=== PATIENT | male | born 1950 | race Caucasian/White ===

== ENCOUNTER 2022-07-01 00:42 | Outpatient (CLI) | payer MEDICARE, OTHER, SELFPAY ==
--- NOTE | 2022-07-01 08:19 | DI.US_ITS ---
Exam(s) US ABDOMEN EXAM: US ABDOMEN CLINICAL HISTORY: BILIARY ACUTE PANCREATITIS,K85.10,ASSESS FOR GALLSTONES,SLUDGE TECHNIQUE: Ultrasound abdomen performed using standard protocol. COMPARISON: No exams were available for comparison FINDINGS: ABDOMINAL AORTA AND IVC: Visualized portions normal caliber. PANCREAS: Normal where visualized. LIVER: The liver is echogenic. It measures 16.9 cm. Hepatopedal flow in the Portal Vein. GALLBLADDER:No evidence of cholelithiasis. No evidence of wall thickening. No pericholecystic fluid i dentified. BILIARY SYSTEM: Common bile duct measures < 7 mm. No intrahepatic biliary ductal dilation. CANTU'S SIGN: Negative. KIDNEYS: Kidneys are symmetric in size. There is a 0.5 cm echogenic focus in the midpole of the left kidney. This may represent a nonobstructing stone. No evidence of hydronephrosis. There is a 1 cm s imple cyst in the right kidney. No follow-up is recommended. SPLEEN: Not enlarged. Note is made of a 2.0 x 1.8 cm accessory spleen. ASCITES: None seen. IMPRESSION: 1. No evidence of cholelithiasis or biliary ductal dilatation. 2. Hepatic steatosis. DATA REPOSITORY:
--- NOTE | 2022-07-01 08:30 | DI.NM_ITS ---
Exam(s) NM HEPATOBILIARY CCK GRP EXAM: NM HEPATOBILIARY CCK GRP CLINICAL HISTORY: EPIGASTRIC PAIJN, R10.13, ? BILIARY DYSKINESIA. TECHNIQUE: Injected dose: 4.5 mCi Tc-99 mebrofenin Initial dynamic images: 60 minutes Post-Gallbladder fillin.4 mcg CCK according to protocol. Addition images: 20 minute dynamic during CCK administration. COMPARISON: US US ABDOMEN from 07/01/2022 FINDINGS: Normal hepatic transit time. Prompt excretion into the small bowel. The gallbladder promptly fills The gallbladder ejection fraction is 31 percent. (Normal greater than 40). IMPRESSION: 1. Decreased gallbladder ejection fraction. This can be seen with gallbladder dyskinesis. SN guidelines: Gallbladder visualization should be present by 3 hours. Delayed thldfge-qq-mejka graff sit beyond 60 min raises the suspicion for partial common bile duct (CBD) obstruction. Gallbladder ejection fraction <35% has a good correlation with acalculous disease (i.e., chronic acal culous cholecystitis, cystic duct syndrome, sphincter of Oddi disease).
[2022-07-01] MEDS: Sincalide 5 MCG VIAL 1.4 MCG IJ (11:41)
[2022-07-01] MEDS: Water,Injection,Sterile 10 ML VIAL IJ (11:42)
== END 2022-07-01 01:02 ==
LOC: DI 00:43
PROVIDERS: PCP Family Medicine; Visit Provider Student in an Organized Health Care Education/Training Program
DX: K85.10 Biliary acute pancreatitis without necrosis or infection (principal); R10.13 Epigastric pain
CPT/HCPCS: 78227; J2805; 76700

== ENCOUNTER 2023-02-24 04:27 | Emergency (ER) | payer MEDICARE, OTHER, SELFPAY ==
[2023-02-24] VITALS (17 sets, daily range): BP systolic 141–173; BP diastolic 68–86; PULSE 66–77; RESP 3–25; TEMP 36.5–36.8; O2SAT 94–98
--- NOTE | 2023-02-24 04:15 | RT.EKG_ITS ---
APPROVED REPORT Exam: Resting ECG Reason for Exam: chest pain Patient Location: E HR:75 bpm ECG Measurements Heart Rate 75 AXIS OR 159 P 51 QRSd 95 QRS 46 QT 382 T 28 QTc 426 Conclusion Sinus rhythm...normal P axis, V-rate 60- 99 Physician: no stemi
--- NOTE | 2023-02-24 04:30 | DI.RAD_ITS ---
Exam(s) XR PORTABLE CHEST AP EXAM: XR PORTABLE CHEST AP CLINICAL HISTORY: left chest/shoulder pain. TECHNIQUE: 2D digital imaging was performed. COMPARISON: CR CHEST 2 VIEWS PA,LAT from 05/12/2017 FINDINGS: Single AP portable view. Heart size is upper normal. The mediastinum is not widened. Lungs are clear. No infiltrates nor obvious pleural effusions. IMPRESSION: No acute pulmonary findings on this single AP portable view of the chest. DATA REPOSITORY: RADIATION DOSE DELIVERED:
--- NOTE | 2023-02-24 04:45 | ED.GENADUL_ITS ---
Discharge Plan Disposition Patient Disposition: Home Condition: Good Discharge Details Clinical Impression: Thoracic outlet syndrome, Tingling of left upper extremity Primary Care Provider: Juan Jose Weinstein ED Provider: Brijesh Alvarez Home Meds and New Rx's Prescriptions: No Action meloxicam PO carvedilol 12.5 mg tablet 12.5 mg PO BID Rx Instructions: must administer with a meal/food fexofenadine 180 mg tablet 180 mg PO DAILY azelastine-fluticasone 137-50 mcg/spray spray,non-aerosol 1 spray intranasal QHS Rx Instructions: administer into each nostril Systane Balance 0.6 % drops 1 drp ophthalmic (eye) DAILY Vyzulta 0.024 % drops 1 drp ophthalmic (eye) QPM Rocklatan 0.02-0.005 % drops 1 drp ophthalmic (eye) QPM gentamicin 0.3 % drops 1 drp ophthalmic (eye) Q4H diltiazem HCl [Taztia XT] 300 MG capsule,extended release 24 hr 300 mg PO DAILY montelukast [Singulair] 10 MG tablet 10 mg PO DAILY hydroxyzine HCl 25 MG tablet 25 mg PO DAILY fluticasone propionate [Flovent HFA] 12 GM HFA aerosol inhaler 220 mcg Inhalation BID epinephrine [EpiPen 2-Angelito] 0.3 MG/0.3 ML auto-injector 0.3 mg IM ONCE albuterol sulfate [ProAir HFA] 8.5 GM HFA aerosol inhaler 2 puff Inhalation Q6H PRN omeprazole 20 MG capsule,delayed release(DR/EC) 20 mg PO DAILY nitroglycerin [Nitrostat] 0.4 MG tablet, sublingual 0.4 mg Sublingual PRN PRN aspirin [Aspirin Low-Strength] 81 MG tablet,chewable 81 mg PO DAILY metronidazole 500 mg tablet Patient Comments: TAKE ONE TABLET BY MOUTH THREE TIMES A DAY FOR 14 DAYS Discharge Instructions Instructions: Thoracic Outlet Syndrome (ED) Additional Instructions: At this time your cardiac workup shows no evidence of heart attack, EKG abnormality or other significant concern. I am concerned that your symptoms may be secondary to thoracic outlet syndrome. Please perform the stretches as we discussed. Please use a heating pad on that side of your neck as needed. If you notice any worsening of your symptoms, or any new symptoms such as vomiting, diarrhea, fever, chills, shortness of breath, chest pain, numbness, weakness, or fainting , please return immediately to the emergency department for reevaluation. Please follow up with your primary care provider as soon as possible for reassessment and reevaluation. As always, it was a pleasure participating in your medical care today. 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 Patient states that he woke up in the middle of the night and had a sharp left shoulder pain which she describes as a numbness that went from his left shoulder all the way down his arm. No chest pain, pleuritic chest pain, or shortness of breath. He got up, and was concerned for his symptoms and came to the ER for further evaluation. He denies any fever or chills. He denies any vomiting or diarrhea. He denies any current pain at this time. He states that usually once per month this will occur, but this was slightly worse than normal. He denies any tearing or ripping sensation. He denies any other complaints at this time. No other modifying factors. Exam demonstrates well-appearing male, no pulse asymmetry. No other abnormalities on exam. Symptoms appear inconsistent with PE or dissection. Low likelihood for ACS. Highest component on the differential is for mild thoracic outlet syndrome causing temporary neuralgia. When asked how the patient sleeps, he sleeps with his left arm draped tightly across to his chest which would correlate well with a brachial plexus irritation and his symptoms. Out of an abundance of precaution that we will evaluate for concerning etiologies, get a chest x-ray, troponins, monitor closely and reassess. EKG is benign with no evidence of STEMI. 7:17 AM Laboratory workup is normal, EKG benign. Troponin normal. Chest x-ray negative for acute process. Patient remains completely asymptomatic. Symptoms notably clinically inconsistent with ACS, PE, dissection, pneumothorax or other acute life-threatening etiology. Symptoms appear consistent with mild thoracic outlet syndrome. Discussed stretching exercises, heating pads, and mechanism/sleep changes for resolution. Symptoms inconsistent with stroke. Discussed red flags which to return. I have extensively reviewed the treatment plan and discharge instructions with the patient and their family. I have addressed all patient concerns at this time. The patient and family was made aware of what symptoms to monitor for that would warrant a return to the emergency department. Discussed the plan with the patient and family, they demonstrate verbal understanding and agreement with our assessment and plan at this time. The documentation in this chart was dictated using [employer] dictation software. Please excuse any dictation errors. FINDINGS: Lungs: No pulmonary vascular congestion, pulmonary edema or pneumonia. Pleural spaces: No pleural effusion or pneumothorax. Heart/Mediastinum: The cardiac silhouette is not enlarged. The mediastinal contours are normal. Bones/joints: No acute osseous abnormality. IMPRESSION: No acute finding. Thank you for allowing us to participate in the care of your patient. Dictated and Authenticated by: aMnuel Roberts MD 02/24/2023 7:01 AM Eastern Time ([place] & [place]) HPI General Date/Time Provider Initiated Documentation: 02/24/23 04:31 . 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 Patient states that he woke up in the middle of the night and had a sharp left shoulder pain which she describes as a numbness that went from his left shoulder all the way down his arm. No chest pain, pleuritic chest pain, or shortness of breath. He got up, and was concerned for his symptoms and came to the ER for further evaluation. He denies any fever or chills. He denies any vomiting or diarrhea. He denies any current pain at this time. He states that usually once per month this will occur, but this was slightly worse than normal. He denies any tearing or ripping sensation. He denies any other complaints at this time. No other modifying factors. Related Data Home Medications Medication Instructions Recorded Confirmed omeprazole 20 mg capsule,delayed 20 mg PO DAILY 08/01/12 02/24/23 release aspirin 81 mg chewable tablet 81 mg PO DAILY 09/28/15 02/24/23 (Aspirin Low-Strength) nitroglycerin 0.4 mg sublingual 0.4 mg sublingual PRN PRN 09/28/15 03/26/22 tablet (Nitrostat) EpiPen 2-Angelito 0.3 mg/0.3 mL 0.3 mg IM ONCE 01/18/17 03/26/22 injection, auto-injector (epinephrine) Flovent HFA 220 mcg/actuation 220 mcg inhalation BID 01/18/17 02/24/23 aerosol inhaler (fluticasone propionate) ProAir HFA 90 mcg/actuation 2 puff inhalation Q6H PRN 01/18/17 03/26/22 aerosol inhaler (albuterol sulfate) Singulair 10 mg tablet 10 mg PO DAILY 01/18/17 02/24/23 (montelukast) Taztia XT 300 mg capsule,extended 300 mg PO DAILY 01/18/17 02/24/23 release (diltiazem HCl) hydroxyzine HCl 25 mg tablet 25 mg PO DAILY 01/18/17 02/24/23 azelastine-fluticasone 137 mcg-50 1 spray intranasal QHS 02/12/22 03/26/22 mcg/spray nasal spray carvedilol 12.5 mg tablet 12.5 mg PO BID 02/12/22 02/24/23 fexofenadine 180 mg tablet 180 mg PO DAILY 02/12/22 02/24/23 gentamicin 0.3 % eye drops 1 drp ophthalmic (eye) Q4H 02/12/22 02/24/23 latanoprostene bunod 0.024 % eye 1 drp ophthalmic (eye) QPM 02/12/22 02/24/23 drops (Vyzulta) netarsudil 0.02 %-latanoprost 1 drp ophthalmic (eye) QPM 02/12/22 02/24/23 0.005 % eye drops (Rocklatan) propylene glycol 0.6 % eye drops 1 drp ophthalmic (eye) DAILY 02/12/22 02/24/23 (Systane Balance) meloxicam PO 03/26/22 metronidazole 500 mg tablet mg 02/24/23 Allergies Allergy/AdvReac Type Severity Reaction Status Date / Time brimonidine Allergy Verified 02/24/23 04:49 ciprofloxacin [From Cipro] Allergy gagnon, Verified 02/24/23 04:49 appetite loss, headaches ciprofloxacin HCl Allergy gagnon, Verified 02/24/23 04:49 [From Cipro] appetite loss, headaches gentamicin Allergy Verified 02/24/23 04:49 NSAIDS (Non-Steroidal Allergy Verified 02/24/23 04:49 Anti-Inflamma Penicillins Allergy lip sores Verified 02/24/23 04:49 swollen gums tamsulosin AdvReac Severe sinus Verified 02/24/23 04:49 blockage/HERRON bee stings Allergy Uncoded 02/24/23 04:49 environmental Allergy Uncoded 02/24/23 04:49 hay fever Allergy Uncoded 02/24/23 04:49 General Stated Complaint: Chest Pain LEONID: 2 Review of Systems All systems reviewed & are unremarkable except as noted in HPI and below PFSH All Active Problems (Updated 02/24/23 @ 05:36 by Brijesh Alvarez DO) Tingling of left upper extremity (Acute) Thoracic outlet syndrome (Acute) Chronic GERD (Acute) Throat discomfort (Acute) Phlegm in throat (Acute) Sensorineural hearing loss, bilateral (Acute) Impacted cerumen, bilateral (Acute) Nasal congestion (Acute) Chronic rhinitis (Acute) Post-nasal drip (Acute) Itchy eyes (Acute) Unspecified asthma, uncomplicated (Acute 07/29/16) Allergic rhinitis due to pollen (Acute 11/23/16) Allergic rhinitis due to allergen (Acute 07/29/16) Medical History Anxiety Asthma Detached retina Environmental allergies GERD (gastroesophageal reflux disease) Glaucoma Hypertension Myocardial bridge Surgical History Colonoscopy (04/13/11) EGD (04/13/11) EGD - MAC (02/04/17) History of carpal tunnel surgery History of prostate surgery Hx of cataract surgery Kidney Stone Extraction Repair of inguinal hernia (06/29/14) Right Kidney Stent Family History Father Afib Social History Smoking/Tobacco Use Status: Never Smoking risk assessment performed?: Yes Alcohol Intake: current Alcohol Intake frequency: a few times a week Alcohol type: wine Drug use: Never Substance use type: does not use Do you feel safe at home: Yes Do you feel safe in your relationship?: Yes Exam Narrative Exam Narrative: 1.Const: Well-nourished, Well-developed, appearing stated age 2.Eyes: PERRL, no conjunctival injection, and symmetrical lids. 3.ENT: Atraumatic external nose and ears. Moist MM. Neck: Symmetric, trachea midline, No thyromegaly. 4.CVS: +S1/S2, No murmurs or gallops. Peripheral pulses 2+ and equal in all extremities. Brisk capillary refill in all extremities. 5.RESP: Unlabored respiratory effort. Clear to auscultation bilaterally. No wheezes rales or rhonchi 6.GI: Soft, Nontender/Nondistended, No hepatosplenomegaly. No guarding or rebound. 7.MSK: Normocephalic/Atraumatic, Extremities w/o deformity or ttp No cyanosis or clubbing, Normal movement of all extremities 8.Skin: Warm, Dry. No rashes or lesions. 9.Neuro: flying instructor II-XII grossly intact. Sensation grossly intact, no focal neurologic deficits. 10.Psych: (AAO) x3. Appropriate mood and affect Course Vital Signs Vital signs: Vital Signs Temperature 36.5 C 02/24/23 04:32 Pulse 77 02/24/23 04:32 Respiratory Rate 16 02/24/23 04:32 Blood Pressure 173/86 H 02/24/23 04:32 Pulse Oximetry 98 02/24/23 04:32 Temperature 36.5 C 02/24/23 04:32 Temperature Source Oral 02/24/23 04:32 Pulse 77 02/24/23 04:32 Respiratory Rate 18 02/24/23 04:38 Respiratory Effort Normal, Non-Labored 02/24/23 04:38 Respiratory Depth Normal 02/24/23 04:38 Respiratory Pattern Normal 02/24/23 04:38 Blood Pressure 173/86 H 02/24/23 04:32 Blood Pressure Position Supine 02/24/23 04:32 Pulse Oximetry 98 02/24/23 04:32 Oxygen Delivery Method Room Air 02/24/23 04:32 Oxygen Flow Rate 0 02/24/23 04:32 Pain Level 0 02/24/23 04:32 PAWSS Have you Been Recently Intoxicated or Drunk Within the Last 30 days?: No Have you Ever Experienced Previous Episodes of Alcohol Withdrawal?: No Have you ever Experienced Withdrawal Seizures?: No Have you ever Experienced Delirium Tremens(DT)s?: No Have you ever undergone Alcohol Rehabilitation Treatment (i.e, inpt ot outpatient treatment programs)?: No Have you ever Experienced Blackouts?: No Have you ever Combined Alcohol with other Downers within the last 90 days?: No Have you ever Combined Alcohol with any other Substance of Abuse during the last 90 days?: No Positive Blood Alcohol level on Presentation? [PCS.BAL]: No Evidence of Increased Autonomic Activity (i.e. HR>120, tremor, sweating, agitation, nausea)?: No Result: 0
[2023-02-24 04:51] LABS: Abs Immature Grans 0.04 10^3/uL (0.0-0.06); Absolute Basophil Count 0.05 10^3/uL (0.0-0.2); Absolute Eosinophil Count 0.35 10^3/uL (0.0-0.7); Absolute Lymphocyte Count 1.65 10^3/uL (1.2-3.4); Absolute Monocyte Count 0.54 10^3/uL (0.1-0.8); Absolute Neutrophil Count 3.84 10^3/uL (1.2-6.7); Basophils % 0.8; Eosinophils % 5.4; HGB 16.1 g/dL (13.5-17.5); Immature Grans % 0.6; Lymphocytes % 25.5; MCH 30.1 pg (27.0-33.0); MCHC 34.3 % (32.0-36.0); MCV 88 fL (80-95); MPV 9.9 fL (8.0-11.0); Monocytes % 8.3; Neutrophils % 59.4; Platelet Count 172 10^3/uL (130-400); RBC 5.34 10^6/uL (4.36-5.78); RDW 12.6 % (11.8-14.1); RDW-SD 40.4 fL; WBC 6.47 10^3/uL (4.4-10.8)
[2023-02-24 05:04] LABS: PTT Activated 25.1 sec (23.6-32.8); Prothrombin Time 10.2 sec (9.1-11.1)
[2023-02-24 05:09] LABS: ALT 40 U/L (16-63); AST 22 U/L (15-37); Alkaline Phosphatase 91 U/L (46-116); BUN 18 mg/dL (7-18); Bilirubin, Total 0.7 mg/dL (0.2-1.0); CREATININE 1.2 mg/dL (0.70-1.30); Calcium 9.2 mg/dL (8.5-10.1); Chloride 104 mmol/L (98-107); Estimated GFR 64.25 (mL/min/1.73m2); Glucose 131 mg/dL (74-106); Sodium 140 mmol/L (136-145); Total Protein 7.1 g/dL (6.4-8.2); Troponin I < 50 ng/L (<or=60)
--- NOTE | 2023-02-24 07:02 | DI.VRAD_ITS ---
PROCEDURE INFORMATION: Exam: XR Chest Exam date and time: 02/24/2023 5:03 AM Age: 72 years old Clinical indication: Left chest/shoulder pain TECHNIQUE: Imaging protocol: Radiologic exam of the chest. Views: 1 view. COMPARISON: CR CHEST 2 VIEWS PA,LAT 05/12/2017 12:58 AM FINDINGS: Lungs: No pulmonary vascular congestion, pulmonary edema or pneumonia. Pleural spaces: No pleural effusion or pneumothorax. Heart/Mediastinum: The cardiac silhouette is not enlarged. The mediastinal contours are normal. Bones/joints: No acute osseous abnormality. IMPRESSION: No acute finding. Dictated and Authenticated by: Manuel Roberts MD. Ordering:ROCIO Coley MD
== END 2023-02-24 05:53 | disposition home or self-care (01) ==
PROVIDERS: Emergency Provider Student in an Organized Health Care Education/Training Program; PCP Family Medicine
DX: R20.0 Anesthesia of skin (principal); G54.0 Brachial plexus disorders; I10 Essential (primary) hypertension; Z79.82 Long term (current) use of aspirin
CPT/HCPCS: 36415; 80053; 93005; 99283; 71045; 84484; 85025; 85610; 85730; 93010

== ENCOUNTER 2024-10-24 10:37 | Emergency (ER) | payer MEDICARE, OTHER, SELFPAY ==
[2024-10-24 10:51] VITALS: BP 138/81; PULSE 66; RESP 16; TEMP 36.8; O2SAT 96
--- NOTE | 2024-10-24 12:15 | DI.RAD_ITS ---
Exam(s) XR FOOT LT COMPLETE XR ANKLE LT COMPLETE EXAM: XR ANKLE LT COMPLETE and XR foot LT complete CLINICAL HISTORY: pain post twisting injury TECHNIQUE: 2D digital imaging was performed of the left foot and ankle. Six images were obtained. AP, lateral and oblique views were obtained. COMPARISON: There are no priors for comparison. FINDINGS: BONES: No acute fracture is present. No bony destructive lesion is seen. There is an enthesophyte at the posterior calcaneus. There is a small plantar calcaneal spur. JOINTS:The ankle mortise is normally aligned. The joint spaces of the foot are well maintained. SOFT TISSUE: Normal. IMPRESSION: There is no acute fracture or dislocation of the left ankle or left foot. DATA REPOSITORY: RADIATION DOSE DELIVERED:
[2024-10-24 13:36] VITALS: BP 139/76; PULSE 65; RESP 17; O2SAT 96
[2024-10-24] MEDS: Diph,Pertuss(Acell),Tet Vac/Pf 0.5 ML SYR IM (13:42)
--- NOTE | 2024-10-25 08:42 | W.ED.GENAD ---
Discharge Plan Disposition Patient Disposition: Home Condition: Stable Discharge Details Clinical Impression: Ankle sprain Primary Care Provider: Juan Jose Weinstein ED Provider: Antonia Juárez Home Meds and New Rx's Prescriptions: New oxycodone 5 mg capsule 5 mg PO Q8H PRNQty: 4 0RF Continued budesonide-formoterol 2 inh inhalation PRN carvedilol 12.5 mg tablet 12.5 mg PO BID Rx Instructions: must administer with a meal/food fexofenadine 180 mg tablet 180 mg PO DAILY Systane Balance 0.6 % drops 1 drp ophthalmic (eye) DAILY Vyzulta 0.024 % drops 1 drp ophthalmic (eye) QPM Rocklatan 0.02-0.005 % drops 1 drp ophthalmic (eye) QPM montelukast 10 mg tablet 10 mg PO DAILY Qty: 90 3RF diltiazem HCl [Taztia XT] 300 MG capsule,extended release 24 hr 300 mg PO DAILY montelukast [Singulair] 10 MG tablet 10 mg PO DAILY hydroxyzine HCl 25 MG tablet 25 mg PO DAILY fluticasone propionate [Flovent HFA] 12 GM HFA aerosol inhaler 220 mcg Inhalation BID epinephrine [EpiPen 2-Angelito] 0.3 MG/0.3 ML auto-injector 0.3 mg IM ONCE albuterol sulfate [ProAir HFA] 8.5 GM HFA aerosol inhaler 2 puff Inhalation Q6H PRN omeprazole 20 MG capsule,delayed release(DR/EC) 20 mg PO DAILY nitroglycerin [Nitrostat] 0.4 MG tablet, sublingual 0.4 mg Sublingual PRN PRN aspirin [Aspirin Low-Strength] 81 MG tablet,chewable 81 mg PO DAILY metronidazole 500 mg tablet Patient Comments: TAKE ONE TABLET BY MOUTH THREE TIMES A DAY FOR 14 DAYS mirabegron [Myrbetriq] 50 mg tablet extended release 24 hr 50 mg PO DAILY Discharge Instructions Instructions: Ankle Sprain ED Additional Instructions: Rest, ice, compression, elevation You may apply heat intermittently Wear your brace during the day and remove at night Please have your ankle rechecked in 2 weeks by PCP Please return earlier should you have new or worsening complaints You may weight-bear as tolerated I have written you for several doses of oxycodone this is addictive and should be used cautiously and may also make you constipated, do not drive for 8 hours after taking this medication Referrals: Juan Jose Weinstein [Primary Care Provider, Medicine] Discharge Data Discharge Date/Time-TO BE ENTERED AT DEPARTURE: 10/24/24 13:54 HPI General Date/Time Provider Initiated Documentation: 10/24/24 11:04. HPI Narrative: This 73-year-old male with history of asthma glaucoma and hypertension presents with pain to left ankle. He states that he was on the second story of his barn when his right leg went through the floor causing him to twist his left ankle he was able to successfully dislodge his right foot but noticed that he had swelling and pain to his left ankle denies any head injury or discharge additional required injuries. Denies any knee pain does have abrasions to bilateral medial knees per patient denies chest pain shortness of breath or dizziness. Denies history of coagulopathy. Related Data Home Medications ?Medication ?Instructions ?Recorded ?Confirmed omeprazole 20 mg capsule,delayed 20 mg PO DAILY 08/01/12 10/24/24 release aspirin 81 mg chewable tablet 81 mg PO DAILY 09/28/15 10/24/24 (Aspirin Low-Strength) nitroglycerin 0.4 mg sublingual 0.4 mg sublingual PRN PRN 09/28/15 10/24/24 tablet (Nitrostat) EpiPen 2-Angelito 0.3 mg/0.3 mL 0.3 mg IM ONCE 01/18/17 10/24/24 injection, auto-injector (epinephrine) Flovent HFA 220 mcg/actuation 220 mcg inhalation BID 01/18/17 10/24/24 aerosol inhaler (fluticasone propionate) ProAir HFA 90 mcg/actuation 2 puff inhalation Q6H PRN 01/18/17 10/24/24 aerosol inhaler (albuterol sulfate) Singulair 10 mg tablet 10 mg PO DAILY 01/18/17 10/24/24 (montelukast) Taztia XT 300 mg capsule,extended 300 mg PO DAILY 01/18/17 10/24/24 release (diltiazem HCl) hydroxyzine HCl 25 mg tablet 25 mg PO DAILY 01/18/17 10/24/24 carvedilol 12.5 mg tablet 12.5 mg PO BID 02/12/22 10/24/24 fexofenadine 180 mg tablet 180 mg PO DAILY 02/12/22 10/24/24 latanoprostene bunod 0.024 % eye 1 drp ophthalmic (eye) QPM 02/12/22 10/24/24 drops (Vyzulta) netarsudil 0.02 %-latanoprost 1 drp ophthalmic (eye) QPM 02/12/22 10/24/24 0.005 % eye drops (Rocklatan) propylene glycol 0.6 % eye drops 1 drp ophthalmic (eye) DAILY 02/12/22 10/24/24 (Systane Balance) metronidazole 500 mg tablet mg 02/24/23 09/28/24 budesonide-formoterol 2 inh inhalation PRN 03/04/23 10/24/24 montelukast 10 mg tablet 10 mg PO DAILY #90 tabs 09/21/24 10/24/24 mirabegron 50 mg tablet,extended 50 mg PO DAILY 10/24/24 10/24/24 release 24 hr (Myrbetriq) oxycodone 5 mg capsule 5 mg PO Q8H PRN #4 caps 10/24/24 Previous Rx's ?Medication ?Instructions ?Recorded montelukast 10 mg tablet 10 mg PO DAILY #90 tabs 09/21/24 oxycodone 5 mg capsule 5 mg PO Q8H PRN #4 caps 10/24/24 Allergies Allergy/AdvReac Type Severity Reaction Status Date / Time bee venom protein (honey bee) Allergy Anaphylaxis Verified 10/24/24 10:55 brimonidine Allergy Unknown Verified 10/24/24 10:55 ciprofloxacin (From Cipro) Allergy kalin, Verified 10/24/24 10:55 appetite loss, headaches ciprofloxacin HCl (From Allergy gagnon, Verified 10/24/24 10:55 Cipro) appetite loss, headaches gentamicin Allergy Unknown Verified 10/24/24 10:55 NSAIDS (Non-Steroidal Allergy ulcers Verified 10/24/24 10:55 Anti-Inflamma Penicillins Allergy lip sores Verified 10/24/24 10:55 swollen gums tamsulosin AdvReac Severe sinus Verified 10/24/24 10:55 blockage/HERRON environmental Allergy Other (See Uncoded 10/24/24 10:55 Comment) General Stated Complaint: Orthopedic LEONID: 4 Exam Narrative Exam Narrative: Alert and oriented 73-year-old male GCS 15 no acute distress tenderness with palpation with swelling to left lateral ankle neurovascularly intact no tenderness to left foot no tenderness to left knee bilaterally no tib-fib tenderness abrasions noted to medial aspect of knee bilaterally, no tenderness to hips abdomen pelvis or chest Course Vital Signs Vital signs: Vital Signs Temperature 36.8 C 10/24/24 10:51 Pulse 66 10/24/24 10:51 Respiratory Rate 16 10/24/24 10:51 Blood Pressure 138/81 10/24/24 10:51 Pulse Oximetry 96 10/24/24 10:51 Temperature 36.8 C 10/24/24 10:51 Temperature Source Oral 10/24/24 10:51 Pulse 65 10/24/24 13:36 Respiratory Rate 17 10/24/24 13:36 Blood Pressure 139/76 10/24/24 13:36 Blood Pressure Mean 97 10/24/24 13:36 Pulse Oximetry 96 10/24/24 13:36 Oxygen Delivery Method Room Air 10/24/24 13:36 Oxygen Flow Rate 0 10/24/24 13:36 Pain Level 8 10/24/24 10:51 Medical Decision Making Results: Ankle x-ray per radiology interpretation of my review does not show evidence of acute abnormality Assessment and plan 73-year-old male presenting post left ankle injury. No acute fracture noted on x-ray I suspect patient has a left ankle sprain will place in a long boot. He will follow-up with his primary care physician in 2 weeks for reassessment with additional imaging as needed. He was given for oxycodone as needed pain to take at night with risk of addiction recommendation to refrain from driving in the evening. Return precautions reviewed and patient expressed understanding. [facility] All Active Problems (Updated 10/24/24 @ 13:17 by CALE Humphrey) Ankle sprain (Acute) Atopic dermatitis (Acute) Abnormal auditory perception of right ear (Acute) Chronic GERD (Acute) Throat discomfort (Acute) Phlegm in throat (Acute) Sensorineural hearing loss, bilateral (Acute) Impacted cerumen, bilateral (Acute) Nasal congestion (Acute) Chronic rhinitis (Acute) Post-nasal drip (Acute) Itchy eyes (Acute) Unspecified asthma, uncomplicated (Acute 07/29/16) Allergic rhinitis due to pollen (Acute 11/23/16) Allergic rhinitis due to allergen (Acute 07/29/16) Medical History Detached retina Myocardial bridge Asthma Hypertension Glaucoma GERD (gastroesophageal reflux disease) Environmental allergies Anxiety Surgical History History of carpal tunnel surgery History of prostate surgery Hx of cataract surgery Right Kidney Stent Kidney Stone Extraction Repair of inguinal hernia (06/29/14) EGD - MAC (02/04/17) EGD (04/13/11) Colonoscopy (04/13/11) Family History Father Afib Social History Smoking/Tobacco Use Status: Never Smoking risk assessment performed?: Yes Alcohol Intake: current Alcohol Intake frequency: a few times a week Alcohol type: wine Drug use: Never Substance use type: does not use Do you feel safe at home: Yes Do you feel safe in your relationship?: Yes PAWSS Have you Been Recently Intoxicated or Drunk Within the Last 30 days?: No Have you Ever Experienced Previous Episodes of Alcohol Withdrawal?: No Have you ever Experienced Withdrawal Seizures?: No Have you ever Experienced Delirium Tremens(DT)s?: No Have you ever undergone Alcohol Rehabilitation Treatment (i.e, inpt ot outpatient treatment programs)?: No Have you ever Experienced Blackouts?: No Have you ever Combined Alcohol with other Downers within the last 90 days?: No Have you ever Combined Alcohol with any other Substance of Abuse during the last 90 days?: No Positive Blood Alcohol level on Presentation? [PCS.BAL]: No Evidence of Increased Autonomic Activity (i.e. HR>120, tremor, sweating, agitation, nausea)?: No Result: 0
--- NOTE | 2024-11-14 10:20 | NUR.NOTE ---
Accessed Pt chart to print provider summary for [facility].
--- NOTE | 2024-11-14 10:21 | NUR.NOTE ---
Accessed Pt chart to print provider summary for [facility].
== END 2024-10-24 13:54 | disposition home or self-care (01) ==
PROVIDERS: Emergency Provider Physician Assistant; PCP Family Medicine
DX: S93.402A Sprain of unspecified ligament of left ankle, initial encounter (principal); W13.3XXA Fall through floor, initial encounter; Y92.71 Barn as the place of occurrence of the external cause
CPT/HCPCS: 90471; 90715; 99284; 73610; 73630; 99283